=== PATIENT | male | born 1955 | race Caucasian/White ===

== ENCOUNTER 2017-04-17 21:35 | Emergency (ER) | payer OTHER ==
[~2017-04-17] VITALS: Ht 177.8 cm; Wt 160.2 kg
[~2017-04-17 21:35] MED LIST: ALBU8I INH; CEPH500 PO; HIBI4LIQ TOP; SULF1TAB47 PO
[2017-04-17 21:42] VITALS: BP 151/75; PULSE 82; RESP 14; TEMP 98.6; O2SAT 90
[2017-04-17] MEDS ORDERED: VENTAER INH (21:56)
[2017-04-17] MEDS ORDERED: methylPREDNISolone SOD SUCC 125 MG/2 ML VIAL IV PUSH ONE (22:00)
[2017-04-17] MEDS ORDERED: SODIUM CHLORIDE 0.9% FLUSH 10 ML FLUSH IVF PRN (22:00)
--- NOTE | 2017-04-17 22:01 | PD ---
HPI Chief Complaint: Respiratory Symptoms Time Seen by Provider: 21:54 Travel History International Travel<30 days: No Contact w/Intl Traveler<30days: No Traveled to known affect area: No History of Present Illness HPI 61-year-old male presents to the emergency department by private transportation for evaluation of 8 days of cough congestion and shortness of breath. Patient reports last Tuesday he developed a nonproductive cough that persisted until Tuesday and then developed a productive cough of yellow-green sputum subsequently due to ongoing symptoms he was seen on by his primary care provider Dr. Osborne who gave him an injection of steroid his symptoms seem to improve on Tuesday but recurred on Tuesday with worsening symptoms today and went to local urgent care reportedly a room air O2 saturation was 82-83%. Patient was reportedly given 2 updraft treatments with improvement of symptoms and he was encouraged to come to the emergency room for IV steroids and breathing treatments. Patient states that he went home and while at home he felt symptomatic and decided to come to the emergency room to be evaluated. Patient reports in triage reportedly his saturations were 90-93% on room air. He's had no difficulty with sleeping because of shortness of breath but has had persistent cough denies any hemoptysis or chest pain. No referred neck jaw back shoulder arm or abdominal pain. No lower extremity pain or swelling. No erythema or warmth the lower extremities and states that he watches is very closely because he has required admission in the past for lower extremity cellulitis and has had no symptoms similar to this. Patient did have the flu vaccine. Patient was seen by his primary on as well as today in urgent care and was not tested for the flu either time. Patient denies any fever or chills. Patient does admit to daily tobacco use and does have a history of asthma. Patient denies any chronic medical conditions specifically denies known CAD CHF hypertension dyslipidemia or diabetes. No pleuritic chest pain. No recent long distance travel protracted bedrest her surgical procedure. No history of clotting disorder. Patient does have an as needed rescue inhaler that he uses only on an as-needed basis did not use it today. PFSH Past Medical History Narrative Medical Lower extremity cellulitis, asthma, tobaccoism, obesity; appendectomy; nursing notes reviewed Arthritis: No Asthma: Yes (" A CHILD") Autoimmune Disease: No Blood Disorders: No Anxiety: No Depression: No Heart Rhythm Problems: No Cancer: No Cardiovascular Problems: No High Cholesterol: No Chest Pain: No Congestive Heart Failure: No COPD: No Cerebrovascular Accident: No Diabetes: No Diminished Hearing: No Endocrine: No Gastrointestinal Disorders: Yes GERD: No Glaucoma: No Genitourinary: Yes Hepatitis: No Hiatal Hernia: No Hypertension: No Immune Disorder: No Kidney Stones: No Musculoskeletal: Yes Neurologic: No Psychiatric: No Reproductive: No Respiratory: Yes Integumentary: Yes (mrsa) Migraines: No Myocardial Infarction: No Renal Failure: No Seizures: No Sleep Apnea: No Thyroid Disease: No Ulcer: No Past Surgical History Abdominal Surgery: Yes (APPENDECTOMY) Appendectomy: Yes Cardiac Surgery: No Cholecystectomy: No Ear Surgery: No Endocrine Surgery: No Eye Surgery: No Genitourinary Surgery: No Gynecologic Surgery: No Oral Surgery: No Thoracic Surgery: No Other Surgery: Yes Social History Alcohol Use: No Tobacco Use: Yes (3/4 PPD) Substance Use: No Allergies-Medications (Allergen,Severity, Reaction): Coded Allergies: No Known Allergies (Verified Adverse Reaction, Unknown, 04/17/17) Reported Meds & Prescriptions Reported Meds & Active Scripts Active Reported Ventolin Hfa 18 GM Inh (Albuterol Sulfate) 90 Mcg/Act Aer 2 Puff INH Q4H PRN Review of Systems Except as stated in HPI: all other systems reviewed are Neg Physical Exam Narrative GENERAL: Well-developed well-nourished obese male in no acute distress no respiratory distress room air O2 saturation in triage 90% SKIN: Warm and dry. HEAD: Normocephalic. EYES: No scleral icterus. No injection or drainage. NECK: Supple, trachea midline. No JVD or lymphadenopathy. CARDIOVASCULAR: Regular rate and rhythm without murmurs, gallops, or rubs. RESPIRATORY: Breath sounds equal bilaterally, diminished bilaterally. No accessory muscle use. GASTROINTESTINAL: Abdomen soft, non-tender, nondistended. MUSCULOSKELETAL: No cyanosis, or edema. BACK: Nontender without obvious deformity. No CVA tenderness. Data Data Last Documented VS Vital Signs Date Time Temp Pulse Resp B/P (MAP) Pulse Ox O2 Delivery O2 Flow Rate FiO2 04/18/17 01:00 86 20 178/88 (118) 90 Room Air 04/17/17 23:32 98.7 2.00 Orders Orders Complete Blood Count With Diff (04/17/17 21:54) Basic Metabolic Panel (Bmp) (04/17/17 21:54) B-Type Natriuretic Peptide (04/17/17 21:54) Act Partial Throm Time (Ptt) (04/17/17 21:54) Prothrombin Time / Inr (Pt) (04/17/17 21:54) Ckmb (Isoenzyme) Profile (04/17/17 21:54) Troponin I (04/17/17 21:54) Influenzae A/B Antigen (04/17/17 21:54) Iv Access Insert/Monitor (04/17/17 21:54) Electrocardiogram (04/17/17 21:54) Ecg Monitoring (04/17/17 21:54) Oximetry (04/17/17 21:54) Oxygen Administration (04/17/17 21:54) Chest, Single Ap (04/17/17 21:54) Sodium Chloride 0.9% Flush (Ns Flush) (04/17/17 22:00) Methylprednisolone So Succ Inj (Solumedr (04/17/17 22:00) Albuterol-Ipratropium Neb (Duoneb Neb) (04/17/17 22:00) Blood Culture (04/17/17 22:50) Lactic Acid (04/17/17 22:50) Ceftriaxone Inj (Rocephin Inj) (04/17/17 23:00) Azithromycin Inj (Zithromax Inj) (04/17/17 23:00) Sputum Culture And Gram Stain (04/17/17 22:50) Albuterol-Ipratropium Neb (Duoneb Neb) (04/17/17 23:00) Labs Laboratory Tests Test 04/17/17 22:10 04/17/17 23:15 White Blood Count 12.2 TH/MM3 Red Blood Count 5.39 MIL/MM3 Hemoglobin 15.7 GM/DL Hematocrit 49.1 % Mean Corpuscular Volume 91.2 FL Mean Corpuscular Hemoglobin 29.2 PG Mean Corpuscular Hemoglobin Concent 32.0 % Red Cell Distribution Width 14.1 % Platelet Count 318 TH/MM3 Mean Platelet Volume 8.3 FL Neutrophils (%) (Auto) 69.9 % Lymphocytes (%) (Auto) 14.1 % Monocytes (%) (Auto) 12.6 % Eosinophils (%) (Auto) 1.3 % Basophils (%) (Auto) 2.1 % Neutrophils # (Auto) 8.5 TH/MM3 Lymphocytes # (Auto) 1.7 TH/MM3 Monocytes # (Auto) 1.5 TH/MM3 Eosinophils # (Auto) 0.2 TH/MM3 Basophils # (Auto) 0.3 TH/MM3 CBC Comment DIFF FINAL Differential Comment Prothrombin Time 11.2 SEC Prothromb Time International Ratio 1.1 RATIO Activated Partial Thromboplast Time 29.1 SEC Blood Urea Nitrogen 18 MG/DL Creatinine 0.79 MG/DL Random Glucose 120 MG/DL Calcium Level 8.6 MG/DL Sodium Level 136 MEQ/L Potassium Level 4.0 MEQ/L Chloride Level 98 MEQ/L Carbon Dioxide Level 34.3 MEQ/L Anion Gap 4 MEQ/L Estimat Glomerular Filtration Rate 99 ML/MIN Total Creatine Kinase 96 U/L Troponin I 0.02 NG/ML B-Type Natriuretic Peptide 83 PG/ML Lactic Acid Level 0.8 mmol/L [facility] Medical Decision Making Medical Screen Exam Complete: Yes Emergency Medical Condition: Yes Medical Record Reviewed: Yes Interpretation(s) EKG normal sinus rhythm rate 80 no ventricular conduction delay nonspecific T- wave inversion anteroseptally; no acute ST elevation Differential Diagnosis Dyspnea, pneumonia, bronchitis, CHF, PE, ACS, influenza, viral syndrome Narrative Course Patient placed on hand stoner and continuous pulse oximetry; updraft treatments ordered along with a one-time dose of Solu-Medrol 125 mg IV patient placed on supplemental oxygen to keep O2 saturations greater than 92%; specimens collected and sent for resulting Diagnosis Primary Impression: Left against medical advice Additional Impressions: Pneumonia COPD (chronic obstructive pulmonary disease) Hypoxemia Med/Other Pt SpecificInfo: Prescription(s) given Scripts Azithromycin (Zithromax Z-Levy) 250 Mg Dspk 250 MG PO DIRECTED for Infection, #1 DSPK 0 Refills 500 MG (2 tabs) day 1, then 1 tab days 2-5. Prov: Liliana Ayers MD 04/18/17 Disposition: 07 AGAINST MEDICAL ADVICE Condition: Stable Liliana Ayers MD Apr 17, 2017 22:01
[2017-04-17 22:16] VITALS: O2SAT 91
[2017-04-17] MEDS: RESP: ALBUTEROL 2.5 MG/IPRATROPIUM 0.5 MG NEB (SCH) INH ×2 (22:28→22:35)
[2017-04-17 22:29] LABS: AUTOMATED NEUTROPHIL # 8.5 TH/MM3 (1.8-7.7); BASOPHIL # 0.3 TH/MM3 (0-0.2); BASOPHIL % 2.1 % (0.0-2.0); EOSINOPHIL # 0.2 TH/MM3 (0-0.4); EOSINOPHIL % 1.3 % (0.0-4.0); HEMATOCRIT 49.1 % (39.0-51.0); HEMOGLOBIN 15.7 GM/DL (13.0-17.0); LYMPH % 14.1 % (9.0-44.0); LYMPHOCYTE # 1.7 TH/MM3 (1.0-4.8); MEAN CELL VOLUME 91.2 FL (80.0-100.0); MEAN CORPUSCULAR HEMOGLOBIN 29.2 PG (27.0-34.0); MEAN PLATELET VOLUME 8.3 FL (7.0-11.0); MONO % 12.6 % (0.0-8.0); MONOCYTE # 1.5 TH/MM3 (0-0.9); NEUT % 69.9 % (16.0-70.0); PLATELET COUNT 318 TH/MM3 (150-450); RED BLOOD COUNT 5.39 MIL/MM3 (4.50-5.90); RED CELL DISTRIBUTION WIDTH 14.1 % (11.6-17.2); WHITE BLOOD COUNT 12.2 TH/MM3 (4.0-11.0)
--- NOTE | 2017-04-17 22:36 | RADRPT ---
EXAM DATE/TIME: 04/17/2017 22:18 [place] COMPARISON: No previous studies available for comparison. INDICATIONS : Cough for about a week. MEDICAL HISTORY : Asthma. SURGICAL HISTORY : None. ENCOUNTER: Initial ACUITY: 1 week PAIN SCORE: 0/10 LOCATION: Bilateral chest FINDINGS: Mild, patchy bibasilar consolidation noted and superimposed on mild diffuse interstitial opacities. N o pleural effusion. No pneumothorax. Heart size upper limits of normal. CONCLUSION: Mild bibasilar airspace disease superimposed on mild, probably chronic diffuse interstitial opacities . Ryan Ramos MD on April 17, 2017 at 22:31 Board Certified Radiologist. This report was verified electronically.
[2017-04-17 22:46] LABS: BICARBONATE 34.3 MEQ/L (21.0-32.0); CALCIUM 8.6 MG/DL (8.5-10.1)
[2017-04-17 22:50] LABS: CREATININE 0.79 MG/DL (0.60-1.30)
[2017-04-17 22:54] LABS: TROPONIN I 0.02 NG/ML (0.02-0.05)
[2017-04-17] MEDS ORDERED: RESP: ALBUTEROL 2.5 MG/IPRATROPIUM 0.5 MG NEB (SCH) NEB ONE (23:00)
[2017-04-17] MEDS ORDERED: AZITHROMYCIN INJ 500 MG in SODIUM CHLOR 0.9% 250 ML INJ 250 ML IV ONE (23:00)
[2017-04-17] MEDS ORDERED: cefTRIAXone INJ 1,000 MG in SODIUM CHLORIDE 0.9% INJ 100 ML IV ONE (23:00)
[2017-04-17 23:04] LABS: INTERNATIONAL NORMALIZED RATIO 1.1 RATIO; PROTHROMBIN TIME - PATIENT 11.2 SEC (9.8-11.6)
[2017-04-17 23:32] VITALS: BP 179/74; PULSE 91; RESP 18; TEMP 98.7; O2SAT 94
[2017-04-18 01:00] VITALS: BP 178/88; PULSE 86; RESP 20; O2SAT 90
[2017-04-18] MEDS ORDERED: ZITHTAB PO (01:14)
--- NOTE | 2017-04-18 18:24 | EKG ---
Date Performed: 04/17/2017 Time Performed: 22:08:06 PTAGE: 61 years EKG: Sinus rhythm INDETERMINATE AXIS MODERATE INTRAVENTRICULAR CONDUCTION DELAY Consider anterolateral ischemia. [place] OTERO ECG NO PREVIOUS TRACING DOCTOR: Lele Vaughn Interpretating Date/Time 04/18/2017 18:22:14
== END 2017-04-18 01:17 | disposition left against medical advice (07) ==
LOC: PHED 21:35
DX: J18.9 Pneumonia, unspecified organism (principal); J44.9 Chronic obstructive pulmonary disease, unspecified; R09.02 Hypoxemia; J45.909 Unspecified asthma, uncomplicated; E66.9 Obesity, unspecified; F17.200 Nicotine dependence, unspecified, uncomplicated; Z79.51 Long term (current) use of inhaled steroids
CPT/HCPCS: 71045; 80048; 82550; 83605; 83880; 84484; 85025; 85610; 85730; 87040; 87070; 87205; 87804; 93005; 94640; 94664; 96365; 96367; 96375; 99285; J0456; J0696; J2930; J7050